=== PATIENT | male | born 2000 | race Caucasian/White ===

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

== ENCOUNTER 2021-11-06 09:24 | Emergency (ER) | payer BC, OTHER ==
[~2021-11-06] VITALS: Ht 185.4 cm; Wt 90.9 kg
[2021-11-06 09:31] VITALS: BP 142/90
[2021-11-06] MEDS ORDERED: ORPH100T2 PO (10:08)
[2021-11-06] MEDS ORDERED: HYDR-3972 PO (10:08)
== END 2021-11-06 10:31 | disposition home or self-care (01) ==
LOC: ER 09:25
DX: S06.0X0A Concussion without loss of consciousness, initial encounter (principal); S00.03XA Contusion of scalp, initial encounter; R51.9 Headache, unspecified; J45.909 Unspecified asthma, uncomplicated; Z79.899 Other long term (current) drug therapy; W19.XXXA Unspecified fall, initial encounter; Y93.89 Activity, other specified; Y92.89 Other specified places as the place of occurrence of the external cause; Y99.8 Other external cause status
CPT/HCPCS: 99283